=== PATIENT | female | born 1955 | race Asian ===

== ENCOUNTER 2020-09-01 18:22 | Emergency (ER) | payer MEDICAID ==
[~2020-09-01] VITALS: Ht 149.9 cm; Wt 55.0 kg
[~2020-09-01 18:22] MED LIST: BENZ1TAB61; LISI1TAB39; PROP10TA16; PROP50TA3
--- NOTE | 2020-09-01 18:52 | NUR ---
Assisted pt to bedside commode. UA collected and tubed to lab. Lab at bedside.
[2020-09-01 19:05] LABS: MICROSCOPIC AUTO
[2020-09-01 19:06] LABS: BASOPHILS % (AUTO) 1 % (0-1); EOSINOPHILS % (AUTO) 4 % (1-7); LYMPHOCYTES % (AUTO) 30 % (22-44); MEAN CORPUSCULAR HEMOGLOBIN 33.2 pg (27.0-34.8); MEAN CORPUSCULAR HGB CONC 34.5 g/dL (32.4-35.8); MEAN PLATELET VOLUME 7.5 fL (7.4-10.4); MONOCYTES % (AUTO) 9 % (2-9); NEUTROPHILS % (AUTO) 57 % (42-75); PLATELET COUNT 251 x10^3/uL (130-400); RED BLOOD COUNT 4.51 x10^6/uL (3.82-5.3); RED CELL DISTRIBUTION WIDTH 14.6 % (9.6-15.2)
[2020-09-01 19:09] LABS: ALANINE AMINOTRANSFERASE 34 U/L (12-78); ALBUMIN 3.9 g/dL (3.4-5.0); ANION GAP 5 mmol/L (5-15); CALCIUM 9.5 mg/dL (8.5-10.1); CHLORIDE 105 mmol/L (98-107)
[2020-09-01 19:12] LABS: MD NO
[2020-09-01 19:20] LABS: ALKALINE PHOSPHATASE 137 U/L (45-117); BILIRUBIN,TOTAL 0.3 mg/dL (0.2-1.0); TOTAL PROTEIN 8.2 g/dL (6.4-8.2)
--- NOTE | 2020-09-01 19:24 | NUR ---
Note abril in ED - 09/01/20 at 1924 by [facility] full service supervisor/onc doctor reports pt can eat.
[2020-09-01 19:32] VITALS: BP 172/98
--- NOTE | 2020-09-01 19:32 | NUR ---
Pt agrees with and understands discharge plan and instructions.
== END 2020-09-01 19:37 | disposition home or self-care (01) ==
LOC: ED 19:17
DX: R53.1 Weakness (principal); E03.9 Hypothyroidism, unspecified; I10 Essential (primary) hypertension; E11.9 Type 2 diabetes mellitus without complications
CPT/HCPCS: 36415; 80053; 81001; 84443; 84481; 85025; 87086; 99283

== ENCOUNTER 2020-10-06 12:12 | Emergency (ER) | payer MEDICAID ==
--- NOTE | 2020-10-06 12:31 | NUR ---
NIL X1
--- NOTE | 2020-10-06 12:45 | NUR ---
NIL X2
--- NOTE | 2020-10-06 13:05 | NUR ---
NILX3
--- NOTE | 2020-10-06 13:32 | NUR ---
NIL X4. DISCHARGED FROM SYSTEM LEFT WITHOUT BEING SEEN
== END 2020-10-06 13:34 | disposition left against medical advice (07) ==
LOC: ED 13:28
DX: F41.9 Anxiety disorder, unspecified (principal); Z53.21 Procedure and treatment not carried out due to patient leaving prior to being seen by health care provider

== ENCOUNTER 2020-12-13 09:58 | Emergency (ER) | payer MEDICAID ==
[~2020-12-13] VITALS: Ht 154.9 cm; Wt 60.0 kg
[2020-12-13 10:04] VITALS: BP 188/83
--- NOTE | 2020-12-13 10:07 | NUR ---
PT POOR HISTORIAN. WAS NOT ANSWERING RN OR MD QUESTIONS. PT BIB EMS FOR CP, SOB, KNEE PAIN, AND INSOMNIA FOR "A VERY LONG TIME". PT RECIEVED [employer]. PT RESTING IN [facility]. CONNECTED TO ALL MONITORING EQUIPMENT
== END 2020-12-13 11:17 | disposition home or self-care (01) ==
LOC: ED 11:15
DX: R07.89 Other chest pain (principal); I10 Essential (primary) hypertension; E11.9 Type 2 diabetes mellitus without complications; E78.5 Hyperlipidemia, unspecified
CPT/HCPCS: 71045; 93005; 99283

== ENCOUNTER 2021-03-06 14:00 | Emergency (ER) | payer MEDICAID ==
[~2021-03-06] VITALS: Ht 149.9 cm; Wt 50.0 kg
--- NOTE | 2021-03-06 14:08 | NUR ---
DR. VALENTIN AT BEDSIDE.
[2021-03-06] MEDS ORDERED: LISI20TA21 PO (14:17)
[2021-03-06 14:30] LABS: BASOPHILS % (AUTO) 1 % (0-1); EOSINOPHILS % (AUTO) 2 % (1-7); LYMPHOCYTES % (AUTO) 27 % (22-44); MEAN CORPUSCULAR HEMOGLOBIN 33.3 pg (27.0-34.8); MEAN CORPUSCULAR HGB CONC 34.2 g/dL (32.4-35.8); MEAN PLATELET VOLUME 7.4 fL (7.4-10.4); MONOCYTES % (AUTO) 8 % (2-9); NEUTROPHILS % (AUTO) 62 % (42-75); PLATELET COUNT 227 x10^3/uL (130-400); RED BLOOD COUNT 4.23 x10^6/uL (3.82-5.3); RED CELL DISTRIBUTION WIDTH 14.4 % (9.6-15.2)
--- NOTE | 2021-03-06 14:38 | NUR ---
PT REQUESTING TO CONTACT FAMILY KRISTEN ARTEAGA AND AIDAN AT [phone] TO INFORM PT IS HERE IN THE ED. VOICE MAIL MESSAGE LEFT AT PHONE NUMBER PROVIDED.
[2021-03-06 14:44] LABS: ALBUMIN 3.6 g/dL (3.4-5.0); ANION GAP 5 mmol/L (5-15); CALCIUM 8.8 mg/dL (8.5-10.1); CHLORIDE 106 mmol/L (98-107)
[2021-03-06 14:49] LABS: TROPONIN I < 0.015 ng/mL (0.000-0.045)
[2021-03-06 14:58] VITALS: BP 177/90
== END 2021-03-06 15:58 | disposition home or self-care (01) ==
LOC: ED 15:19
DX: R06.00 Dyspnea, unspecified (principal); R07.89 Other chest pain; I10 Essential (primary) hypertension; E78.5 Hyperlipidemia, unspecified; E11.9 Type 2 diabetes mellitus without complications; E03.9 Hypothyroidism, unspecified
CPT/HCPCS: 36415; 71045; 80048; 82040; 83880; 84484; 85025; 85379; 93005; 99285

== ENCOUNTER 2021-03-21 15:41 | Emergency (ER) | payer MEDICAID ==
[~2021-03-21] VITALS: Ht 149.9 cm; Wt 49.0 kg
[~2021-03-21 15:41] MED LIST changes: +LISI20TA21 PO
[2021-03-21 16:07] VITALS: BP 184/92
--- NOTE | 2021-03-21 18:00 | NUR ---
NEEDS A PSYCHIATRIC ASSESSMENT. FEELING DEPRESSED, HAS NO APPRETITE, CAN'T SLEEP. STATED DID NOT COMPLETE HER THERAPY BUT IS TAKING HER PSYCH MEDS. DENIED SI CURRENTLY erp/social services manager to bedside for thorough assessment
--- NOTE | 2021-03-21 19:10 | NUR ---
report to papa RODRIGUEZ
--- NOTE | 2021-03-21 19:31 | NUR ---
DISCHARGED TO [facility]
== END 2021-03-21 19:33 | disposition home or self-care (01) ==
LOC: ED 18:44
DX: F43.0 Acute stress reaction (principal); F32.9 Major depressive disorder, single episode, unspecified; F41.9 Anxiety disorder, unspecified; I10 Essential (primary) hypertension; E11.9 Type 2 diabetes mellitus without complications; E03.9 Hypothyroidism, unspecified
CPT/HCPCS: 99283